=== PATIENT | female | born 1965 | race Caucasian/White ===

== ENCOUNTER 2018-01-28 12:16 | Emergency (ER) | payer MEDICAID ==
[2018-01-28] MEDS ORDERED: KETOROLAC 30 MG/1 ML SDV IVP ONE (12:42)
[2018-01-28] MEDS ORDERED: ONDANSETRON 4 MG/2 ML VIAL IVP ONE (12:42)
[2018-01-28] MEDS ORDERED: NS 500 ML IV ONE (12:42)
--- NOTE | 2018-01-28 12:49 | EDPHY ---
H & P Time Seen by Provider: 01/28/18 12:26 HPI/ROS: HPI Right lower quadrant abdominal pain. 52-year-old female by private vehicle. This patient underwent an appendectomy this several months ago. She reports since then she has had intermittent loose stools. She presents to the emergency department with complaint of right lower quadrant pain which she describes as focal and sharp ongoing for about 2 days now. She reports that it comes on more in waves. She has had some associated nausea but no vomiting. She reports she has had a bowel movement in the last day or or 2. She denies any bloody or melenic stool. She reports that she has not been constipated. No fever. Denies any urinary complaints. She has not had any vaginal bleeding. ROS: Constitutional: No fever, no chills. No weakness. Eyes: No discharge. No changes in vision. ENT: No sore throat. No nasal congestion or rhinorrhea. Respiratory: No cough. No shortness of breath. Cardiac: No chest pain, no palpitations. Gastrointestinal: As above, no vomiting, no diarrhea. Genitourinary: No hematuria. No dysuria or increased frequency with urination. Musculoskeletal: No back pain. No neck pain. No myalgias or arthralgias. Skin: No rashes. Neurological: No headache. No focal weakness or altered sensation. Past medical history: Appendectomy. IUD in place. Social history: Here by herself. Works at [employer]. Nonsmoker. No alcohol. Physical Exam: General Appearance: Alert, no distress. This patient is responding to questions appropriately and in full sentences. This patient appears well- hydrated and well-nourished. Eyes: Pupils equal and round no pallor or injection. No lid edema, erythema or injection. ENT, Mouth: Mucous membranes are moist. The pharyngeal tissues are unremarkable. No edema or swelling. No asymmetry suggestive of abscess. No erythema or exudates. Respiratory: There are no retractions, lungs are clear to auscultation with good air movement bilaterally. Cardiovascular: Regular rate and rhythm. No murmur. Gastrointestinal: Abdomen is soft with right adnexal tenderness on palpation, no masses, bowel sounds normal. No focal tenderness at McBurney's point. No Salazar sign. Neurological: Motor sensory function is grossly intact. Cranial nerves are normal. Gait is normal. Skin: Warm and dry, no rashes. Musculoskeletal: Neck is supple and nontender. Extremities are symmetrical. All joints range without pain or impingement. Psychiatric: No agitation. No depression. Database: EKG: Imaging: Pelvic ultrasound: Ovary show good blood flow. No ovarian cyst. No other significant abnormalities. The IUD is in the proper position. Results were discussed with staff radiologist Dr. Boom Harrison. Upright abdominal x-ray: Significant for constipation. No free air. No obstructive pattern. Interpreted by me. Procedures: Emergency department course: IV was placed. Triage vital signs reviewed. She was started on IV normal saline with 500 cc to be given over the next hour. She has no contraindications to NSAIDs. No history of renal dysfunction or peptic ulcer disease. She was given 30 mg of IV Toradol for pain and 4 mg of IV Zofran for nausea. Pelvic ultrasound to be obtained. 1:45 p.m., patient re-evaluated. Resting comfortably at this time. Results of her ultrasound and laboratory work discussed with her. Explained that we would obtain an upright abdominal x-ray to evaluate for possible constipation as a source of her pain if this is unremarkable will likely progress to CT imaging. She consents. 2:30 p.m., patient re-evaluated. Results of abdominal x-ray and diagnosis of constipation discussed with her. Repeat abdominal exam she is soft and without significant tenderness on palpation. She appears comfortable. At this time I will withhold CT imaging. We will treat her constipation with magnesium citrate and if needed GoLYTELY. She can easily return to the emergency department if necessary and will do so for worsening abdominal pain, vomiting or fever. She feels comfortable with this plan. All of her questions were answered. She will follow up with her primary care physician regardless early next week for re-evaluation. She was discharged from the emergency department in good condition. Differential Diagnosis: The differential diagnosis on this patient includes but is not limited to ruptured ovarian cyst, urinary tract infection, ectopic , colitis. Appendicitis, cholecystitis unlikely. This represents a partial list of diagnoses considered. These considerations are based on history, physical exam , past history, reassessment and diagnostic testing. Smoking Status: Never smoked Constitutional: Initial Vital Signs Temperature (C) 36.6 C 01/28/18 12:20 Heart Rate 84 01/28/18 12:20 Respiratory Rate 18 01/28/18 12:20 Blood Pressure 141/80 H 01/28/18 12:20 O2 Sat (%) 97 01/28/18 12:20 O2 Delivery Mode Room Air Allergies/Adverse Reactions: No Known Allergies Allergy (Unverified 01/28/18 12:19) Home Medications: Medication Instructions Recorded Celexa 01/28/18 DIAZEPAM 01/28/18 Peg 3350/Na Sulf,Bicarb,Cl/KCl 2,000 ml PO ONCE #1 btl 01/28/18 [Golytely (RX)] Synthroid 01/28/18 Medical Decision Making - Diagnostics Imaging Results: Imaging Impressions Pelvic/Renal Ultrasound 01/28/18 12:43 Impression: 1. IUD appears in good position centrally in the endometrial canal. 2. No adnexal masses, ovarian torsion, or ascites. Findings and recommendations discussed with Emergency Department physician, Suzie Ritter MD at 13:39 hour, 01/28/2018. Final report concurs with initial preliminary interpretation. - Data Points Laboratory Results: Laboratory Results 01/28/18 13:05 01/28/18 13:05 01/28/18 01/28/18 01/28/18 13:05 13:05 13:05 WBC 5.06 10^3/uL 10^3/uL (3.80-9.50) RBC 4.54 10^6/uL 10^6/uL (4.18-5.33) Hgb 12.5 g/dL L g/dL (12.6-16.3) Hct 37.6 % L % (38.0-47.0) MCV 82.8 fL fL (81.5-99.8) MCH 27.5 pg L pg (27.9-34.1) MCHC 33.2 g/dL g/dL (32.4-36.7) RDW 12.2 % % (11.5-15.2) Plt Count 185 10^3/uL 10^3/uL (150-400) MPV 11.1 fL fL (8.7-11.7) Neut % (Auto) 58.3 % % (39.3-74.2) Lymph % (Auto) 28.1 % % (15.0-45.0) [place] % (Auto) 7.7 % % (4.5-13.0) Eos % (Auto) 4.7 % % (0.6-7.6) Baso % (Auto) 1.0 % % (0.3-1.7) Nucleat RBC Rel Count 0.0 % % (0.0-0.2) Absolute Neuts (auto) 2.95 10^3/uL 10^3/uL (1.70-6.50) Absolute Lymphs (auto) 1.42 10^3/uL 10^3/uL (1.00-3.00) Absolute Monos (auto) 0.39 10^3/uL 10^3/uL (0.30-0.80) Absolute Eos (auto) 0.24 10^3/uL 10^3/uL (0.03-0.40) Absolute Basos (auto) 0.05 10^3/uL 10^3/uL (0.02-0.10) Absolute Nucleated RBC 0.00 10^3/uL 10^3/uL (0-0.01) Immature Gran % 0.2 % % (0.0-1.1) Immature Gran # 0.01 10^3/uL 10^3/uL (0.00-0.10) Sodium 137 mEq/L mEq/L (135-145) Potassium 4.2 mEq/L mEq/L (3.3-5.0) Chloride 102 mEq/L mEq/L (97-110) Carbon Dioxide 26 mEq/l mEq/l (22-31) Anion Gap 9 mEq/L mEq/L (8-16) BUN 13 mg/dL mg/dL (7-23) Creatinine 0.6 mg/dL mg/dL (0.6-1.0) Estimated GFR > 60 Glucose 79 mg/dL mg/dL (70-100) Calcium 8.9 mg/dL mg/dL (8.5-10.4) Beta HCG, Qual NEGATIVE Urine Color Urine Appearance Urine pH Ur Specific [place] Urine Protein Urine Ketones Urine Blood Urine Nitrate Urine Bilirubin Urine Urobilinogen Ur Leukocyte Esterase Urine RBC Urine WBC Ur Epithelial Cells Urine Mucus Urine Glucose 01/28/18 12:27 WBC RBC Hgb Hct MCV MCH MCHC RDW Plt Count MPV Neut % (Auto) Lymph % (Auto) [place] % (Auto) Eos % (Auto) Baso % (Auto) Nucleat RBC Rel Count Absolute Neuts (auto) Absolute Lymphs (auto) Absolute Monos (auto) Absolute Eos (auto) Absolute Basos (auto) Absolute Nucleated RBC Immature Gran % Immature Gran # Sodium Potassium Chloride Carbon Dioxide Anion Gap BUN Creatinine Estimated GFR Glucose Calcium Beta HCG, Qual Urine Color YELLOW Urine Appearance CLEAR Urine pH 6.0 (5.0-7.5) Ur Specific [place] 1.016 (1.002-1.030) Urine Protein NEGATIVE (NEGATIVE) Urine Ketones NEGATIVE (NEGATIVE) Urine Blood NEGATIVE (NEGATIVE) Urine Nitrate NEGATIVE (NEGATIVE) Urine Bilirubin NEGATIVE (NEGATIVE) Urine Urobilinogen NEGATIVE EU EU (0.2-1.0) Ur Leukocyte Esterase NEGATIVE (NEGATIVE) Urine RBC NONE SEEN /hpf /hpf (0-3) Urine WBC 1-3 /hpf /hpf (0-3) Ur Epithelial Cells TRACE /lpf /lpf (NONE-1+) Urine Mucus TRACE /lpf /lpf (NONE-1+) Urine Glucose NEGATIVE (NEGATIVE) Medications Given: Discontinued Medications Sodium Chloride (Ns) 500 mls @ 0 mls/hr IV EDNOW ONE; Wide Open PRN Reason: Protocol Stop: 01/28/18 12:43 Last Admin: 01/28/18 13:04 Dose: 500 mls Ketorolac Tromethamine (Toradol) 30 mg IVP EDNOW ONE Stop: 01/28/18 12:43 Last Admin: 01/28/18 13:05 Dose: 30 mg Ondansetron HCl (Zofran) 4 mg IVP EDNOW ONE Stop: 01/28/18 12:43 Last Admin: 01/28/18 13:05 Dose: 4 mg Departure - Departure Disposition: Home, Routine, Self-Care Clinical Impression: Abdominal pain, Constipation Condition: Good Instructions: Abdominal Pain (ED), High Fiber Diet (ED), Constipation (ED) Additional Instructions: Read and follow provided instructions. Follow-up with your primary care physician on Wednesday or Wednesday of next week for re-evaluation. Drink entire contents of magnesium citrate bottle for treatment of constipation tonight as discussed. Discussed with pharmacist, taking 1/2 prep of GoLYTELY for constipation treatment if you do not have satisfactory results with magnesium citrate. Return to the emergency department for worsening abdominal pain, vomiting, fever or other serious concerns. Referrals: Slade Vergara [Primary Care Provider] - As per Instructions Prescriptions: Peg 3350/Na Sulf,Bicarb,Cl/KCl [Golytely (RX)] 2,000 ml PO ONCE #1 btl
[2018-01-28 13:22] LABS: PLATELET COUNT 185 10^3/uL (150-400)
[2018-01-28] MEDS ORDERED: MAGNESIUM CITRATE 300 ML BOTTLE PO ONE (14:37)
[2018-01-28 15:18] VITALS: BP 108/48
== END 2018-01-28 15:16 | disposition home or self-care (01) ==
DX: K59.00 Constipation, unspecified (principal); E86.9 Volume depletion, unspecified; Z90.49 Acquired absence of other specified parts of digestive tract
CPT/HCPCS: 96374; J1885; J2405